=== PATIENT | female | born 1945 | race Caucasian/White ===

== ENCOUNTER 2017-09-07 09:15 | Day surgery (SDC) | payer MEDICARE ==
[~2017-09-07 09:15] MED LIST: DICL75ER PO; ESCI20 PO; ESTRADIOL1 MG PO; HYDACE10B PO; MEDR2.5 PO; RANI150 PO; Zanaflex4 MG PO
== END 2017-09-07 22:47 | disposition home or self-care (01) ==
LOC: ORD 09:15 → CT 09:15 → ORD 09:30 → ORSCSDS 09:30 → CT 10:00 → ORD 22:47
DX: I25.10 Atherosclerotic heart disease of native coronary artery without angina pectoris (principal); I25.84 Coronary atherosclerosis due to calcified coronary lesion; R06.02 Shortness of breath; R53.83 Other fatigue; E78.5 Hyperlipidemia, unspecified; F17.210 Nicotine dependence, cigarettes, uncomplicated
CPT/HCPCS: 75574; Q9967

== ENCOUNTER 2017-09-30 06:33 | Day surgery (SDC) | payer MEDICARE ==
[~2017-09-30] VITALS: Ht 165.1 cm; Wt 65.0 kg
[~2017-09-30 06:33] MED LIST changes: +ASPI81CH PO; +BUPR150ER PO; +CALCIUM 500-VI1 EAC1 PO; +CELE200 PO; +CHOL10002 PO; +FISH OIL 1,0001 EAC1 PO; +MELATONIN5 M1 PO; +METO25ER PO; +MULTI VITAMIN1 EACH PO; +ROSU5 PO; +STOOL SOFTENER1 EAC1 PO
[2017-09-30] MEDS ORDERED: Flonase 0.05% N16 GM (07:01)
[2017-09-30] MEDS ORDERED: LISI5 PO (11:41)
== END 2017-09-30 13:00 | disposition home or self-care (01) ==
LOC: MHTC 06:33
PROC: 4A023N7 Measurement of Cardiac Sampling and Pressure, Left Heart, Percutaneous Approach (ICD-10-PCS; principal; 2017-09-30)
PROC: 4A033BC Measurement of Arterial Pressure, Coronary, Percutaneous Approach (ICD-10-PCS; principal; 2017-09-30)
PROC: B211YZZ Fluoroscopy of Multiple Coronary Arteries using Other Contrast (ICD-10-PCS; principal; 2017-09-30)
DX: I25.10 Atherosclerotic heart disease of native coronary artery without angina pectoris (principal); R94.30 Abnormal result of cardiovascular function study, unspecified; E78.5 Hyperlipidemia, unspecified; F17.210 Nicotine dependence, cigarettes, uncomplicated
CPT/HCPCS: 93454; 93571; 99152; 99153; C1769; C1894; J1644; J2250; J3010; J7030; Q9967

== ENCOUNTER → 2018-01-04 | Outpatient (CLI) | payer MEDICARE ==
[~2018-01-04] MED LIST changes: +Flonase 0.05% N16 GM; +LISI5 PO
== END | disposition home or self-care (01) ==
LOC: LAB SHORT 10:50 → PLD 10:50
DX: B07.9 Viral wart, unspecified (principal); L57.0 Actinic keratosis
CPT/HCPCS: 88305

== ENCOUNTER → 2018-03-10 | Outpatient (CLI) | payer MEDICARE | END | disposition home or self-care (01) | LOC: LAB 07:12 → LAB SHORT 07:12 | DX: R12 Heartburn (principal) | CPT/HCPCS: 87338 ==

== ENCOUNTER 2018-07-20 06:15 | Day surgery (SDC) | payer MEDICARE ==
[~2018-07-20] VITALS: Ht 165.1 cm; Wt 69.2 kg
[~2018-07-20 06:15] MED LIST changes: +Aspir 8181 MG PO; +CILO100 PO; +PANT40 PO
--- NOTE | 2018-07-20 07:04 | NUR ---
07/20/18 0704 Daniel Mckeon CALL LIGHT WITHIN REACH
--- NOTE | 2018-07-20 10:46 | NUR ---
07/20/18 1046 Rossi Cooley BRSARAH CAP REFIL TO RIGHT FINGERS, MOTOR INTACT. POLAR PK IN PLACE
== END 2018-07-20 12:25 | disposition home or self-care (01) ==
LOC: ORSCSDS 06:15
PROVIDERS: Orthopaedic Surgery
PROC: 0RNJ4ZZ Release Right Shoulder Joint, Percutaneous Endoscopic Approach (ICD-10-PCS; principal; 2018-07-20 07:30)
PROC: 0RBJ4ZZ Excision of Right Shoulder Joint, Percutaneous Endoscopic Approach (ICD-10-PCS; principal; 2018-07-20 07:30)
PROC: 0LQ14ZZ Repair Right Shoulder Tendon, Percutaneous Endoscopic Approach (ICD-10-PCS; principal; 2018-07-20 07:30)
DX: M75.111 Incomplete rotator cuff tear or rupture of right shoulder, not specified as traumatic (principal); M75.41 Impingement syndrome of right shoulder; M19.011 Primary osteoarthritis, right shoulder; I10 Essential (primary) hypertension; I25.10 Atherosclerotic heart disease of native coronary artery without angina pectoris; Z87.891 Personal history of nicotine dependence; Z79.899 Other long term (current) drug therapy; Z79.82 Long term (current) use of aspirin
CPT/HCPCS: C1713; J0171; J0690; J1100; J2250; J2405; J3010; J7120

== ENCOUNTER 2018-08-09 09:21 | Emergency (ER) | payer MEDICARE ==
[~2018-08-09] VITALS: Ht 165.1 cm; Wt 67.6 kg
[2018-08-09 10:21] LABS: BASOPHILS ABSOLUTE AUTO 0.04 K/mm3 (0.00-0.23); BASOPHILS PERCENT AUTO 1 % (0-2); EOSINOPHILS ABSOLUTE AUTO 0.08 K/mm3 (0.00-0.68); EOSINOPHILS PERCENT AUTO 1 % (0-6); Hematocrit 42.3 % (33.0-51.0); Hemoglobin 14.1 g/dL (11.5-16.0); IMMATURE GRAN ABSOLUTE AUTO 0.02 K/mm3 (0.00-0.10); IMMATURE GRAN PERCENT AUTO 0 % (0-1); LYMPHOCYTES ABSOLUTE AUTO 2.53 K/mm3 (0.84-5.20); LYMPHOCYTES PERCENT AUTO 32 % (21-46); MONOCYTES ABSOLUTE AUTO 0.76 K/mm3 (0.16-1.47); MONOCYTES PERCENT AUTO 10 % (4-13); Mean Corpuscular HGB 32.2 pg (26.0-34.0); Mean Corpuscular HGB Conc 33.3 g/dL (31.5-36.5); Mean Corpuscular Volume 97 fL (80-100); Mean Platelet Volume 9.9 fL (9.1-12.4); NEUTROPHILS ABSOLUTE AUTO 4.37 K/mm3 (1.96-9.15); NEUTROPHILS PERCENT AUTO 56 % (41-73); Platelet Count 296 K/mm3 (150-400); RDW Coefficient Variation 11.9 % (11.7-14.2); RDW Standard Deviation 41.8 fL (35.1-46.3); Red Blood Cell Count 4.38 M/mm3 (3.80-5.20)
[2018-08-09 10:36] LABS: Alanine Aminotransfer (ALT/SGP 21 U/L (12-78); Albumin, Blood 3.6 g/dL (3.4-5.0); Albumin/Globulin Ratio 1.1 (0.8-1.8); Alk Phos 56 U/L (50-136); Anion Gap 12 mmol/L (6-16); Aspartate Aminotrans (AST/SGOT 17 U/L (12-37); Bilirubin, Total 0.5 mg/dL (0.1-1.0); Blood Urea Nitrogen 13 mg/dL (8-24); Bun/Creatinine Ratio 13.6 (12.0-20.0); CO2, Blood 23 mmol/L (21-32); Calcium, Blood 9.4 mg/dL (8.5-10.1); Chloride, Blood 108 mmol/L (98-108); Creatinine, Blood 0.96 mg/dL (0.40-1.00); Globulin, Blood 3.4 g/dL (2.2-4.0); Glomerular Filtration Rate >60 (60-); Glucose, Blood 103 mg/dL (70-99); Sodium, Blood 143 mmol/L (136-145)
[2018-08-09 10:41] LABS: Troponin I 0.028 ng/mL (0.000-0.040)
[2018-08-09] MEDS ORDERED: Toprol Xl25 MG PO (11:54)
[2018-08-09] MEDS ORDERED: ASCO500 PO (11:59)
[2018-08-09] MEDS ORDERED: DOCU100 PO (12:00)
[2018-08-09] MEDS ORDERED: OSTEO BI-FLEX1 EACH PO (12:01)
[2018-08-09] MEDS ORDERED: DICLOFENAC GEL (12:04)
[2018-08-09] MEDS ORDERED: BUPR150T2 PO (12:38)
== END 2018-08-09 12:25 | disposition home or self-care (01) ==
LOC: ER 09:21
PROVIDERS: Emergency Medicine
DX: I48.0 Paroxysmal atrial fibrillation (principal); Z88.6 Allergy status to analgesic agent; Z88.8 Allergy status to other drugs, medicaments and biological substances; Z79.899 Other long term (current) drug therapy; Z79.82 Long term (current) use of aspirin
CPT/HCPCS: 36415; 71046; 80053; 84484; 85025; 93005; 93010; 99285-25

== ENCOUNTER 2018-09-24 10:56 | Emergency (ER) | payer MEDICARE ==
[~2018-09-24] VITALS: Ht 162.6 cm; Wt 67.1 kg
[~2018-09-24 10:56] MED LIST changes: +ASCO500 PO; +BUPR150T2 PO; +DICLOFENAC GEL; +DOCU100 PO; +OSTEO BI-FLEX1 EACH PO; +Toprol Xl25 MG PO
[2018-09-24] MEDS ORDERED: CYCL10 PO (11:39)
[2018-09-24] MEDS ORDERED: HYDR1TAB94 PO (11:39)
== END 2018-09-24 12:14 | disposition home or self-care (01) ==
LOC: ER 10:56
DX: S16.1XXA Strain of muscle, fascia and tendon at neck level, initial encounter (principal); X58.XXXA Exposure to other specified factors, initial encounter; Z88.8 Allergy status to other drugs, medicaments and biological substances; Z88.5 Allergy status to narcotic agent; Z88.1 Allergy status to other antibiotic agents; Z79.899 Other long term (current) drug therapy; Z79.82 Long term (current) use of aspirin; Z87.891 Personal history of nicotine dependence
CPT/HCPCS: 72040; 96372; 99283-25; J1885

== ENCOUNTER 2018-10-14 06:47 | Day surgery (SDC) | payer MEDICARE ==
[~2018-10-14] VITALS: Ht 162.6 cm; Wt 68.2 kg
[~2018-10-14 06:47] MED LIST changes: +CYCL10 PO; +ELIQUIS5 MG PO; +FISH OIL 1,001000 MG PO; +HYDR1TAB94 PO; -RANI150 PO; +Zantac150 MG PO
[2018-10-14] MEDS ORDERED: METO25ER PO (07:51)
--- NOTE | 2018-10-14 08:29 | NUR ---
PT SLEEPING POST PROCEDURE. BP MILDY ELEVATED, DR COULTER AWARE. WILL CONTINUE TO MONITOR PT UNTIL D/C HOME.
--- NOTE | 2018-10-14 09:40 | NUR ---
PT OUT TO CAR VIA W/C. ACCOMPANIED BY FRIEND WHO WILL STAY WITH PATIENT TODAY. PT DENIES ANY PAIN OR DISCOMFORT. IV DC'D CATH INTACT. VS STABLE AT TIME OF DC, OUT TO CAR VIA WC.
== END 2018-10-15 23:01 | disposition home or self-care (01) ==
LOC: MHTC 06:47
DX: I48.1 Persistent atrial fibrillation (principal); K21.9 Gastro-esophageal reflux disease without esophagitis; I25.10 Atherosclerotic heart disease of native coronary artery without angina pectoris; E78.5 Hyperlipidemia, unspecified; Z87.891 Personal history of nicotine dependence; Z88.1 Allergy status to other antibiotic agents; Z88.8 Allergy status to other drugs, medicaments and biological substances; Z79.899 Other long term (current) drug therapy; Z79.01 Long term (current) use of anticoagulants
CPT/HCPCS: 92960; 93005; 93010; 93312; 93325; 99152; 99153; J2250; J2310; J3010; J7030

== ENCOUNTER 2018-10-20 08:23 | Emergency (ER) | payer MEDICARE ==
[~2018-10-20] VITALS: Ht 162.6 cm; Wt 65.8 kg
[2018-10-20 09:56] LABS: BASOPHILS ABSOLUTE AUTO 0.05 K/mm3 (0.00-0.23); BASOPHILS PERCENT AUTO 1 % (0-2); EOSINOPHILS ABSOLUTE AUTO 0.12 K/mm3 (0.00-0.68); EOSINOPHILS PERCENT AUTO 1 % (0-6); Hematocrit 45.7 % (33.0-51.0); Hemoglobin 15.2 g/dL (11.5-16.0); IMMATURE GRAN ABSOLUTE AUTO 0.02 K/mm3 (0.00-0.10); IMMATURE GRAN PERCENT AUTO 0 % (0-1); LYMPHOCYTES ABSOLUTE AUTO 2.96 K/mm3 (0.84-5.20); LYMPHOCYTES PERCENT AUTO 35 % (21-46); MONOCYTES ABSOLUTE AUTO 0.81 K/mm3 (0.16-1.47); MONOCYTES PERCENT AUTO 10 % (4-13); Mean Corpuscular HGB 30.8 pg (26.0-34.0); Mean Corpuscular HGB Conc 33.3 g/dL (31.5-36.5); Mean Corpuscular Volume 93 fL (80-100); Mean Platelet Volume 9.5 fL (9.1-12.4); NEUTROPHILS ABSOLUTE AUTO 4.42 K/mm3 (1.96-9.15); NEUTROPHILS PERCENT AUTO 53 % (41-73); Platelet Count 326 K/mm3 (150-400); RDW Coefficient Variation 12.1 % (11.7-14.2); RDW Standard Deviation 40.7 fL (35.1-46.3); Red Blood Cell Count 4.94 M/mm3 (3.80-5.20); White Blood Cell Count 8.38 K/mm3 (4.00-11.30)
[2018-10-20 10:10] LABS: Albumin/Globulin Ratio 1.1 (0.8-1.8); Bilirubin, Total 0.8 mg/dL (0.1-1.0); Creatinine, Blood 1.08 mg/dL (0.40-1.00); Globulin, Blood 3.8 g/dL (2.2-4.0); Magnesium, Blood 1.9 mg/dL (1.6-2.4); Potassium, Blood 4.1 mmol/L (3.5-5.5); Total Protein, Blood 7.8 g/dL (6.4-8.2)
== END 2018-10-20 11:48 | disposition home or self-care (01) ==
LOC: ER 08:23
PROVIDERS: Emergency Medicine
DX: I48.91 Unspecified atrial fibrillation (principal); Z88.5 Allergy status to narcotic agent; Z88.1 Allergy status to other antibiotic agents; Z79.899 Other long term (current) drug therapy; Z87.891 Personal history of nicotine dependence
CPT/HCPCS: 80053; 83735; 85025; 92960; 93005; 93010; 99285-25; J2704; J7030

== ENCOUNTER → 2019-10-25 | Outpatient (CLI) | payer MEDICARE ==
[~2019-10-25] MED LIST changes: +Augmentin 875-1 EACH PO; +DONEPEZIL HCL5 M2 PO; +PACERONE100 M1 PO; +ROSUVASTATIN CAL5 MG PO
== END | disposition home or self-care (01) ==
LOC: PLD 11:40 → LAB SHORT 11:40
DX: D48.5 Neoplasm of uncertain behavior of skin (principal)
CPT/HCPCS: 88305

== ENCOUNTER → 2021-10-16 | Outpatient (CLI) | payer MEDICARE | END | disposition home or self-care (01) | LOC: LAB SHORT 11:28 → PLD 11:28 | DX: D04.71 Carcinoma in situ of skin of right lower limb, including hip (principal) | CPT/HCPCS: 88305 ==

== ENCOUNTER → 2022-02-23 | Outpatient (CLI) | payer MEDICARE | END | disposition home or self-care (01) | LOC: LAB 17:31 → LAB SHORT 17:31 | DX: E53.8 Deficiency of other specified B group vitamins (principal) | CPT/HCPCS: 82607; 82746 ==

== ENCOUNTER → 2022-04-04 | Outpatient (CLI) | payer MEDICARE ==
[2022-04-04 13:45] LABS: BASOPHILS ABSOLUTE AUTO 0.05 K/mm3 (0.00-0.23); BASOPHILS PERCENT AUTO 0 % (0-2); EOSINOPHILS ABSOLUTE AUTO 0.03 K/mm3 (0.00-0.68); EOSINOPHILS PERCENT AUTO 0 % (0-6); Hematocrit 43.6 % (33.0-51.0); Hemoglobin 15.1 g/dL (11.5-16.0); IMMATURE GRAN ABSOLUTE AUTO 0.06 K/mm3 (0.00-0.10); IMMATURE GRAN PERCENT AUTO 0 % (0-1); LYMPHOCYTES ABSOLUTE AUTO 4.12 K/mm3 (0.84-5.20); LYMPHOCYTES PERCENT AUTO 26 % (21-46); MONOCYTES ABSOLUTE AUTO 1.14 K/mm3 (0.16-1.47); MONOCYTES PERCENT AUTO 7 % (4-13); Mean Corpuscular HGB 34.3 pg (26.0-34.0); Mean Corpuscular HGB Conc 34.6 g/dL (31.5-36.5); Mean Corpuscular Volume 99 fL (80-100); Mean Platelet Volume 10.2 fL (9.1-12.4); NEUTROPHILS PERCENT AUTO 66 % (41-73); Platelet Count 224 K/mm3 (150-400); RDW Coefficient Variation 12.3 % (11.7-14.2); RDW Standard Deviation 45.1 fL (35.1-46.3)
[2022-04-04 14:05] LABS: Albumin, Blood 3.5 g/dL (3.4-5.0); Albumin/Globulin Ratio 1.1 (0.8-1.8); Bilirubin, Total 0.5 mg/dL (0.1-1.0); Calcium, Blood 9.6 mg/dL (8.5-10.1); Creatinine, Blood 1.16 mg/dL (0.40-1.00); Free Thyroxine 1.42 ng/dL (0.70-1.60); Globulin, Blood 3.2 g/dL (2.2-4.0); Potassium, Blood 4.2 mmol/L (3.5-5.5); Thyroid Stimulating Hormone 1.385 uIU/mL (0.360-4.800); Total Protein, Blood 6.7 g/dL (6.4-8.2)
== END | disposition home or self-care (01) ==
LOC: LAB SHORT 13:41 → LAB 13:41
PROVIDERS: General Practice
DX: I48.91 Unspecified atrial fibrillation (principal)
CPT/HCPCS: 80053; 82550; 84439; 84443; 84484; 85025

== ENCOUNTER → 2022-12-02 | Outpatient (CLI) | payer MEDICARE | LOC: LAB 07:14 → LAB SHORT 07:14 | DX: R10.9 Unspecified abdominal pain (principal) | CPT/HCPCS: 82653 ==

== ENCOUNTER → 2023-04-12 | Outpatient (CLI) | payer MEDICARE | LOC: LAB 11:56 → LAB SHORT 11:56 | DX: D04.71 Carcinoma in situ of skin of right lower limb, including hip (principal) | CPT/HCPCS: 88305 ==

== ENCOUNTER 2023-11-01 08:00 | Day surgery (SDC) | payer MEDICARE ==
[~2023-11-01] VITALS: Ht 162.6 cm; Wt 66.8 kg
[~2023-11-01 08:00] MED LIST changes: +AMOCLA875 PO; +CENTRUM SILVER1 EAC2 PO; +DICY20 PO; +DONE5 PO; +ESTRADIOL1 M1 PO; +MERIBIN5 MG PO; +OSTEOBI-FLEX; +VITAMIN D325 MC3 PO
[2023-11-01] MEDS ORDERED: Lidocaine HCl/Pf 1% 5 ML VIAL ONE (08:02)
[2023-11-01] MEDS ORDERED: Lactated Ringer's 1,000 ML IV ONE ×2 (08:02→08:13)
[2023-11-01] MEDS ORDERED: propofoL 50 ML IV ONE (08:04)
[2023-11-01 09:25] VITALS: BP 116/93
== END 2023-11-01 09:24 | disposition home or self-care (01) ==
LOC: ORSCSDS 08:00
PROVIDERS: Internal Medicine Gastroenterology
PROC: 0DBK8ZX Excision of Ascending Colon, Via Natural or Artificial Opening Endoscopic, Diagnostic (ICD-10-PCS; principal; 2023-11-01 08:00)
DX: R10.9 Unspecified abdominal pain (principal); R14.0 Abdominal distension (gaseous); D12.2 Benign neoplasm of ascending colon; I48.91 Unspecified atrial fibrillation; E78.5 Hyperlipidemia, unspecified; G20.A1 Parkinson's disease without dyskinesia, without mention of fluctuations; F41.9 Anxiety disorder, unspecified; I73.9 Peripheral vascular disease, unspecified; I42.1 Obstructive hypertrophic cardiomyopathy; K86.89 Other specified diseases of pancreas; Z87.891 Personal history of nicotine dependence; Z79.899 Other long term (current) drug therapy
CPT/HCPCS: 88305; J2001; J2704; J7120

== ENCOUNTER 2024-02-10 08:05 | Day surgery (SDC) | payer MEDICARE ==
[2024-02-10] VITALS (11 sets, daily range): BP systolic 127–165; BP diastolic 56–94
[~2024-02-10] VITALS: Ht 165.1 cm; Wt 71.2 kg
[~2024-02-10 08:05] MED LIST changes: +Crestor40 MG PO; +IPRATROPIUM BRO30 ML; +ZENPEP DR 40,01 EACH PO
[2024-02-10] MEDS ORDERED: CALCIUM + MAGNESIUM PO (08:39)
[2024-02-10] MEDS ORDERED: LISI20 PO (08:40)
[2024-02-10] MEDS ORDERED: CARV6.25 PO (08:41)
[2024-02-10] MEDS ORDERED: Verapamil HCL 2.5 MG/ML 2ML Injection ONE (09:08)
[2024-02-10] MEDS ORDERED: NS 2,000 ML IV ONE (09:09)
[2024-02-10] MEDS ORDERED: Nitroglycerin 2 MG/20 ML BTL ONE (09:09)
[2024-02-10] MEDS ORDERED: NS 250 ML IV ONE (09:09)
[2024-02-10] MEDS ORDERED: Heparin Sodium 1000 Units/ML 10ML MDV ONE (09:09)
[2024-02-10] MEDS ORDERED: Aspirin 325 MG Tab ONE (09:14)
[2024-02-10] MEDS ORDERED: Midazolam HCl 1MG / ML 2ML Vial ONE (09:22)
[2024-02-10] MEDS ORDERED: FentaNYL Citrate 50 MCG/ML 2 ML Injection ONE (09:22)
--- NOTE | 2024-02-10 11:00 | NUR ---
ASSUMED CARE OF PT POST PROCEDURE. PT AWAKE AND ORIENTED, COOPERATIVE; DENIES PAIN POST PROCEDURE. MONITOR SB 47-50'S, B/P 142/73, SPO2 98% RA. R RADIAL SITE NO SWELLING/HEMATOMA, TR BAND IN PLACE; RUE POSITIVE PLEUTH POST TR BAND PLACEMENT. R AC (RHC) SITE O SWELLING/HEMATOMA, TEGADER DRSG INTACT.
--- NOTE | 2024-02-10 11:40 | NUR ---
PT R RADIAL SITE WITH SMALL GRADE 1 HEMATOMA, PT DENIES PAIN OR DISCOMFORT AT SITE. DR SINCLAIR AT BEDSIDE REQUESTS MANUAL B/P PLACED FOR 20 MIN. MANUAL B/P PLACED ON R FA 20 POINTS LESS THAN SYSTOLIC, POSITIVE PLETH POST B/P CUFF INFLATION.
--- NOTE | 2024-02-10 12:05 | NUR ---
MANUAL B/P CUFF REMOVED, SMALL GRADE 1 HEMATOMA REMAINS.
--- NOTE | 2024-02-10 12:30 | NUR ---
R RADIAL SMALL GRADE 1 HEMATOMA UNCHANGED.
--- NOTE | 2024-02-10 12:40 | NUR ---
NEW PRESCRIPTION FOR LISINOPRIL/HCTZ FAXED TO [facility] AT [id number].
[2024-02-10] MEDS ORDERED: Lisinopril-Hct1 EAC4 PO (12:46)
--- NOTE | 2024-02-10 13:09 | NUR ---
PT ATE 100% OF MEAL, JAILYN WELL. 3CC AIR REMOVED FROM BALLOON W/O ISSUE.
--- NOTE | 2024-02-10 13:35 | NUR ---
TR BAND COMPLETELY DEFLATED, SMALL GRADE 1 HEMATOMA REMAINS, BUT NO CHANGES SINCE REMOVAL OF MANUAL B/P CUFF.
--- NOTE | 2024-02-10 14:05 | NUR ---
R RADIAL SITE UNCHANGED AFTER TR BAND DEFLATION, SMALL GRADE 1 HEMATOMA REMAINS.
--- NOTE | 2024-02-10 14:15 | NUR ---
PT DRESSED SELF WITHOUT ISSUE, SITE REMAINS UNCHANGED. TR BAND REMOVED, CLOTH DOT AND WRIST IMMOBILIZER PLACED; IV REMOVED-CANNULA INTACT. PT AND DAUGHTER INSTRUCTED ON SITE MANAGEMENT IF BLEEDING OCCURS; VERBALIZE GOOD UNDERSTANDING.
--- NOTE | 2024-02-10 14:25 | NUR ---
PT AND DAUGHTER RECEIVED DISCHARGE INSTRUCTIONS, MED LIST AND AFTER CARE INSTRUCTIONS; VERBALIZED GOOD UNDERSTANDING. PT LEFT FACILITY VIA W/C, CONDITION STABLE.
== END 2024-02-10 14:25 | disposition home or self-care (01) ==
LOC: MHTC 08:05
DX: I25.10 Atherosclerotic heart disease of native coronary artery without angina pectoris (principal); I27.20 Pulmonary hypertension, unspecified; I42.2 Other hypertrophic cardiomyopathy; I10 Essential (primary) hypertension; E78.5 Hyperlipidemia, unspecified; K21.9 Gastro-esophageal reflux disease without esophagitis; I48.91 Unspecified atrial fibrillation; Z87.891 Personal history of nicotine dependence; Z88.5 Allergy status to narcotic agent; Z88.1 Allergy status to other antibiotic agents; Z88.8 Allergy status to other drugs, medicaments and biological substances; Z79.899 Other long term (current) drug therapy
CPT/HCPCS: 76937; 93460; 99152; 99153; A9270; C1769; C1894; J1644; J2250; J3010; J7030; J7050; Q9967

== ENCOUNTER 2024-08-22 07:32 | Day surgery (SDC) | payer MEDICARE ==
[~2024-08-22] VITALS: Ht 160 cm; Wt 70.1 kg
[~2024-08-22 07:32] MED LIST changes: +CALCIUM + MAGNESIUM PO; +CARV6.25 PO; +LISI20 PO; +Lisinopril-Hct1 EAC4 PO
[2024-08-22] MEDS ORDERED: propofoL 50 ML IV ONE (07:37)
[2024-08-22] MEDS ORDERED: Lactated Ringer's 1,000 ML IV ONE ×2 (07:37→08:48)
[2024-08-22] MEDS ORDERED: CILOSTAZOL50 M1 (07:47)
[2024-08-22] MEDS ORDERED: COLESTIPOL HCL1 G1 (07:48)
[2024-08-22] MEDS ORDERED: propofoL 0 ML IV ONE (09:03)
[2024-08-22 10:08] VITALS: BP 106/46
== END 2024-08-22 10:06 | disposition home or self-care (01) ==
LOC: ORSCSDS 07:32
PROVIDERS: Specialist
PROC: 0DBK8ZX Excision of Ascending Colon, Via Natural or Artificial Opening Endoscopic, Diagnostic (ICD-10-PCS; principal; 2024-08-22 09:00)
DX: Z12.11 Encounter for screening for malignant neoplasm of colon (principal); Z86.0100 Personal history of colon polyps, unspecified; D12.2 Benign neoplasm of ascending colon; K57.30 Diverticulosis of large intestine without perforation or abscess without bleeding; K64.8 Other hemorrhoids; I73.9 Peripheral vascular disease, unspecified; I27.20 Pulmonary hypertension, unspecified; K21.9 Gastro-esophageal reflux disease without esophagitis; I48.91 Unspecified atrial fibrillation; F41.9 Anxiety disorder, unspecified; E78.5 Hyperlipidemia, unspecified; F32.A Depression, unspecified; G20.A1 Parkinson's disease without dyskinesia, without mention of fluctuations; Z79.01 Long term (current) use of anticoagulants; Z79.899 Other long term (current) drug therapy
CPT/HCPCS: 88305; J2704; J7120

== ENCOUNTER 2025-04-11 08:38 | Day surgery (SDC) | payer MEDICARE ==
[~2025-04-11] VITALS: Ht 157.5 cm; Wt 71.4 kg
[~2025-04-11 08:38] MED LIST changes: +Balanced Salt Epinephrine Irrigation Solution 500 mL IR SCH; +CILOSTAZOL50 M1; +COLESTIPOL HCL1 G1; +Moxifloxacin HCL 0.5 MG/0.1 ML 0.4MLSYR RIGHTEYE SCH; +Ondansetron 4 MG SoluTab MM PRN; +PHENYLEPHRINE\\TROPICAMIDE\\TETRACAINE OPHTHALMIC DILATING SOLN RIGHTEYE PRN; +Povidone-Iodine 450 DROP/30 ML Solution ONE; +Povidone-Iodine 450 DROP/30 ML Solution RIGHTEYE SCH; +Tetracaine HCl/Pf 0.5% Opth Soln 4 ml ONE; +diazePAM 5 MG,diazePAM 2 MG PO SCH
[2025-04-11] MEDS ORDERED: AUSTEDO6 MG (09:10)
[2025-04-11] MEDS ORDERED: CLIMARA1 EACH (09:11)
[2025-04-11] MEDS ORDERED: MEDR2.5 (09:11)
--- NOTE | 2025-04-11 09:14 | NUR ---
04/11/25 0914 Mandy Day PT STATES ANXIETY LEVEL IS 1/10 IN PREOP CALL LIGHT IN HAND PT IS ON CONTINUOUS PULSE OX MONITORING IN PREOP.
--- NOTE | 2025-04-11 09:33 | NUR ---
04/11/25 0933 Liseth Jones 0931 BP:126/60 HR:59 O2:100% RESP:16
[2025-04-11 09:58] VITALS: BP 119/67
--- NOTE | 2025-04-11 10:17 | NUR ---
04/11/25 MATTY CELESTE DTR WAS HERE FOR DC INSTRUCTIONS. ALL QUESTIONS WERE ANSWERED. PT WORE DARK GLASSES OUT. EXTRA TAPE WAS GIVEN. VERY DELIGHTFUL PT AND DTR
== END 2025-04-11 10:15 | disposition home or self-care (01) ==
LOC: ORSCSDS 08:38
PROVIDERS: Student in an Organized Health Care Education/Training Program
PROC: 08RJ3JZ Replacement of Right Lens with Synthetic Substitute, Percutaneous Approach (ICD-10-PCS; principal; 2025-04-11 10:00)
DX: H25.813 Combined forms of age-related cataract, bilateral (principal); I48.91 Unspecified atrial fibrillation; F32.A Depression, unspecified; E78.5 Hyperlipidemia, unspecified; G20.A1 Parkinson's disease without dyskinesia, without mention of fluctuations; Z79.01 Long term (current) use of anticoagulants; Z79.899 Other long term (current) drug therapy; Z87.891 Personal history of nicotine dependence
CPT/HCPCS: A9270; V2632